=== PATIENT | female | born 1960 | race Two or more races ===

== ENCOUNTER 2018-04-12 17:25 | Emergency (ER) | payer MEDICARE, MEDICAID ==
[~2018-04-12] VITALS: Ht 165.1 cm; Wt 72.6 kg
[2018-04-12 19:49] LABS: Basophils # (auto) 0 uL; Basophils % (auto) 0.5 % (0.0-2.0); Eosinophils # (auto) 0.1 uL; Eosinophils % (auto) 0.6 % (0.0-7.0); Hematocrit 48.7 % (36.0-46.0); Hemoglobin 16.8 g/dL (12.2-16.2); Lymphocytes # (auto) 2.5 uL; Lymphocytes % (auto) 30.5 % (10.0-50.0); Mean Corpuscular Hgb Conc. 34.5 g/dL (32.0-36.0); Mean Corpuscular Volume 95.9 fL (80.0-100.0); Monocytes # (auto) 0.5 uL; Monocytes % (auto) 6.5 % (0.0-12.0); Neutrophils # (auto) 5.1 uL; Neutrophils % (auto) 61.9 % (37.0-80.0); Nucleated Red Blood Cells % 0.1 %; Platelet Count (auto) 356 10^3/uL (140-450); Red Blood Cells 5.08 10^6/uL (4.0-5.20); Red Cell Distribution Width 13.2 % (11.8-14.3); White Blood Cell 8.3 10^3/uL (4.4-10.8)
[2018-04-12 19:51] LABS: Alcohol, Urine < 3.0 mg/dL (0-5); Amphetamine Screen, Urine NEGATIVE (NEGATIVE); Barbiturate Scree,Urine NEGATIVE (NEGATIVE); Benzodiazephine Screen, Urine NEGATIVE (NEGATIVE); Cannabinoid Screen, Urine NEGATIVE (NEGATIVE); Cocaine Screen, Urine NEGATIVE (NEGATIVE); Opiate Scree,Urine NEGATIVE (NEGATIVE); Phencyclidine Screen, Urine NEGATIVE (NEGATIVE)
[2018-04-12 20:05] LABS: Salicylate 5.9 mg/dL (2.8-20.0)
[2018-04-12 20:09] LABS: Anion Gap 9 (5-15); BUN/Creatinine Ratio 18.3; Blood Alcohol < 3.0 mg/dL (0-5); Blood Urea Nitrogen 11 mg/dL (7-18); Calcium 8.6 mg/dL (8.5-10.1); Carbon Dioxide 24 mmol/L (21-32); Chloride 107 mmol/L (98-107); GFR African American 133 mL/min; GFR Non-African American 110 mL/min; Glucose 94 mg/dL (74-106); Sodium 140 mmol/L (136-145)
[2018-04-12 20:16] LABS: Acetaminophen < 2.0 ug/mL (10-30)
[2018-04-12] MEDS ORDERED: LORazepam 2MG/ML-1ML VIAL IM ONE (22:00)
[2018-04-12] MEDS ORDERED: KETOROLAC TROMETH 30 MG/ML 1ML VIAL IV ONE (22:00)
[2018-04-12] MEDS ORDERED: KETOROLAC TROMETH 60MG/2ML VIAL IM ONE (22:00)
[2018-04-12] MEDS ORDERED: LORazepam 2MG/ML-1ML VIAL IV ONE (22:00)
[2018-04-13] MEDS ORDERED: TEMAZEPAM 15 MG CAP PO ONE (02:00)
[2018-04-13] MEDS ORDERED: HYDROcodone-ACET 5/325MG TAB PO ONE (10:45)
[2018-04-13 11:16] VITALS: BP 126/80
== END 2018-04-13 11:50 | disposition home or self-care (01) ==
LOC: EDBD 17:25 → ER 17:33 → EDBD 17:33 → ER 04-13 11:50
DX: R45.851 Suicidal ideations (principal); G89.4 Chronic pain syndrome; F32.9 Major depressive disorder, single episode, unspecified; F17.210 Nicotine dependence, cigarettes, uncomplicated; Z90.710 Acquired absence of both cervix and uterus
CPT/HCPCS: 36415; 80048; 80307; 80320; 80329; 85025; 93005; 94761; 96374; 96375; 99284; J1885; J2060

== ENCOUNTER 2018-11-24 17:07 | Emergency (ER) | payer MEDICARE, MEDICAID ==
[~2018-11-24] VITALS: Ht 167.6 cm; Wt 109.8 kg
[2018-11-24 17:26] VITALS: BP 164/96
[2018-11-24] MEDS ORDERED: predniSONE 20 MG TAB PO ONE (19:00)
[2018-11-24] MEDS ORDERED: BACLOFEN 10 MG TAB PO ONE (19:00)
[2018-11-24] MEDS ORDERED: NAPROXEN 500 MG TAB PO ONE (19:00)
== END 2018-11-24 19:55 | disposition home or self-care (01) ==
LOC: ER 17:15
DX: S73.101A Unspecified sprain of right hip, initial encounter (principal); S83.91XA Sprain of unspecified site of right knee, initial encounter; F17.210 Nicotine dependence, cigarettes, uncomplicated; Z90.710 Acquired absence of both cervix and uterus; X50.1XXA Overexertion from prolonged static or awkward postures, initial encounter; Y93.E1 Activity, personal bathing and showering; Y92.091 Bathroom in other non-institutional residence as the place of occurrence of the external cause; Y99.8 Other external cause status
CPT/HCPCS: 73502; 99284; J7512